=== PATIENT | female | born 1955 | race Caucasian/White ===

== ENCOUNTER → 2021-09-25 09:17 | Outpatient (BNVA) | payer MEDICARE, SELFPAY | PROVIDERS: PCP Nurse Practitioner Family; Visit Provider Nurse Practitioner Family | DX: E78.5 Hyperlipidemia, unspecified (principal); E03.9 Hypothyroidism, unspecified; E11.9 Type 2 diabetes mellitus without complications; I49.9 Cardiac arrhythmia, unspecified; Z12.83 Encounter for screening for malignant neoplasm of skin; I42.2 Other hypertrophic cardiomyopathy | CPT/HCPCS: 80053; 80061; 82043; 83036; 84443 ==

== ENCOUNTER → 2021-12-03 14:19 | Outpatient (BNVA) | payer MEDICARE, SELFPAY | PROVIDERS: PCP Nurse Practitioner Family; Visit Provider Internal Medicine | DX: I42.2 Other hypertrophic cardiomyopathy (principal); R00.2 Palpitations | CPT/HCPCS: 93225; 99203; 99204 ==

== ENCOUNTER → 2021-12-03 15:30 | Outpatient (BNVA) | payer MEDICARE, SELFPAY | PROVIDERS: PCP Nurse Practitioner Family; Visit Provider Internal Medicine | DX: Z53.9 Procedure and treatment not carried out, unspecified reason (principal) ==

== ENCOUNTER 2022-02-05 08:13 | Outpatient (CLI) | payer MEDICARE, SELFPAY ==
--- NOTE | 2022-02-05 08:30 | USCV_ITS ---
Yi Melissa Age: 66 Gender: F : 1955 Exam Date: 02/05/2022 08:34 Ordering Phys: Rohith Roth M.D ([email or web address]) Technologist: [place] [facility] [place] HISTORY: Diameter (cm) AP x Transverse x Length Velocity (cm/s) Waveform Prox Aorta: 1.92 x 1.89 x 62.10 Triphasic Mid Aorta: 1.56 x 2.17 x 68.00 Triphasic Distal Aorta: 1.56 x 1.89 x 96.70 Triphasic Right Iliac Prox: 1.56 x 2.10 x 202.00 Triphasic Left Iliac Prox: 1.40 x 1.45 x 134.00 Triphasic Stent Prox Landing x x Aneurysmal Sac Max x x Lt Lat Sac Dim Rt Lat Sac Dim Stent Dist Landing x x Right Iliac Stent x x Left Iliac Stent x x Right Renal Art Left Renal Art FINDINGS: Comparison: none available. A complete assessment of the abdominal aorta was not possible. Ectatic abdominal aorta with evidence of atherosclerotic plaque noted. No evidence of abdominal aortic aneurysm. There is evidence of atherosclerotic plaque no significan stenosis in the right common iliac artery. There is evidence of atherosclerotic plaque no significan stenosis in the left common iliac artery. CONCLUSIONS No evidence of abdominal aortic aneurysm. Dr. Rocio Green DO (Electronically Signed) Final Date: 05 February 2022 11:14 S
--- NOTE | 2022-02-05 09:15 | USCV_ITS ---
Melissa Richmond Age: 66 Gender: F : 1955 Exam Date: 02/05/2022 08:54 Ordering Phys: Rohith Roth M.D ([email or web address]) Technologist: Exam Location: [facility] – [place] Indication: left vent hypertrophy BP: / HR: 66 Rhythm: Sinus Technical Quality: Adequate MEASUREMENTS (Male / Female) Normal Values 2D ECHO LV Diastolic Diameter PLAX 2.9 cm 4.2 - 5.9 / 3.9 - 5.3 cm LV Systolic Diameter PLAX 2.4 cm IVS Diastolic Thickness 2.7 cm 0.6 - 1.0 / 0.6 - 0.9 cm IVS Systolic Thickness 3.0 cm LVPW Diastolic Thickness 1.8 cm 0.6 - 1.0 / 0.6 - 0.9 cm LVPW Systolic Thickness 1.8 cm LVOT Diameter 2.0 cm LV Ejection Fraction 2D Teich 13.8 % LV Ejection Fraction MOD 2C 75.0 % LV Ejection Fraction 2C AL 77.3 % LA Diameter 3.6 cm M-MODE Aortic Annulus Diameter 4.0 cm LA Ao Ratio MM 0.9 MV E Point Septal Separation 0.8 cm DOPPLER AV Peak Velocity 132.0 cm/s LVOT Peak Velocity 109.0 cm/s AV Area Cont Eq vti 2.9 cm squared AV Area Cont Eq pk 2.6 cm squared MV Area PHT 5.0 cm squared Mitral E to A Ratio 0.4 MV E' Velocity 23.2 cm/s Mitral E to MV E' Ratio 6.5 Mitral E to LV E' Lateral Ratio 6.7 Mitral E to LV E' Septal Ratio 6.2 TR Peak Velocity 149.0 cm/s TR Peak Gradient 8.9 mmHg TV Peak E Velocity 74.0 cm/s Right Atrial Pressure 3.0 mmHg Pulmonary Artery Systolic Pressu 11.9 mmHg PV Peak Velocity 119.0 cm/s RV Acceleration Time 0.2 s FINDINGS Left Ventricle Left ventricle is normal in size. LV systolic function is normal with EF of 60-65%. No regional wall motion abnormalities are seen. Moderate concentric left ventricle hypertrophy with severe basal septal hypertrophy. No systolic anterior motion of mitral valve. Grade 1 diastolic dysfunction Right Ventricle Normal in size and function Right Atrium Normal in size Left Atrium Normal in size Mitral Valve Structurally normal mitral valve. Mild mitral regurgitation Aortic Valve Structurally normal aortic valve. No significant stenosis. Mild aortic regurgitation. No significant gradient across LVOT Tricuspid Valve Grossly normal. No significant stenosis or regurgitation. Pulmonic Valve Not well visualized Pericardium Normal Aorta Normal in size IVC CONCLUSIONS LV systolic function is normal with EF of 60-65%. Moderate concentric left ventricular hypertrophy with severe basal septal hypertrophy. No systolic anterior motion of mitral valve. Grade 1 diastolic dysfunction Mild mitral regurgitation Mild aortic regurgitation No comparison studies are available Rohith Roth MD (Electronically Signed) Final Date: 10 February 2022 12:23 S
== END 2022-02-05 08:14 | disposition home or self-care (01) ==
PROVIDERS: PCP Nurse Practitioner Family; Visit Provider Internal Medicine
DX: Z13.6 Encounter for screening for cardiovascular disorders (principal); I42.2 Other hypertrophic cardiomyopathy; I71.40 Abdominal aortic aneurysm, without rupture, unspecified; I08.0 Rheumatic disorders of both mitral and aortic valves
CPT/HCPCS: 93306; 93978

== ENCOUNTER → 2022-02-18 09:17 | Outpatient (BNVA) | payer MEDICARE, SELFPAY | PROVIDERS: PCP Nurse Practitioner Family; Visit Provider Nurse Practitioner Family | DX: E11.9 Type 2 diabetes mellitus without complications (principal); E55.9 Vitamin D deficiency, unspecified; E03.9 Hypothyroidism, unspecified; E78.5 Hyperlipidemia, unspecified | CPT/HCPCS: 80053; 80061; 82306; 83036; 84443 ==

== ENCOUNTER → 2022-04-10 08:50 | Outpatient (BNVA) | payer MEDICARE, SELFPAY | PROVIDERS: PCP Nurse Practitioner Family; Visit Provider Nurse Practitioner Family | DX: J02.9 Acute pharyngitis, unspecified (principal) | CPT/HCPCS: 87880 ==

== ENCOUNTER → 2022-04-16 13:01 | Outpatient (BNVA) | payer MEDICARE, SELFPAY | PROVIDERS: PCP Nurse Practitioner Family; Visit Provider Internal Medicine | DX: I42.2 Other hypertrophic cardiomyopathy (principal) | CPT/HCPCS: 99214 ==

== ENCOUNTER → 2022-06-27 07:53 | Outpatient (BNVA) | payer MEDICARE, SELFPAY | PROVIDERS: PCP Nurse Practitioner Family; Visit Provider Internal Medicine | DX: E11.9 Type 2 diabetes mellitus without complications (principal); E03.9 Hypothyroidism, unspecified; E78.5 Hyperlipidemia, unspecified; L68.0 Hirsutism; Z79.84 Long term (current) use of oral hypoglycemic drugs; Z79.890 Hormone replacement therapy | CPT/HCPCS: 99204 ==

== ENCOUNTER → 2022-07-03 08:17 | Outpatient (BNVA) | payer MEDICARE, SELFPAY | PROVIDERS: PCP Nurse Practitioner Family; Visit Provider Internal Medicine | DX: E03.9 Hypothyroidism, unspecified (principal); E11.9 Type 2 diabetes mellitus without complications | CPT/HCPCS: 80053; 80061; 82043; 82607; 82627; 83036; 84403; 84439; 84443; 84480 ==

== ENCOUNTER → 2022-09-19 08:15 | Outpatient (BNVA) | payer MEDICARE, SELFPAY | PROVIDERS: PCP Nurse Practitioner Family; Visit Provider Internal Medicine | DX: E03.9 Hypothyroidism, unspecified (principal); E11.9 Type 2 diabetes mellitus without complications | CPT/HCPCS: 80053; 80061; 82043; 83036; 84439; 84443; 84480 ==

== ENCOUNTER → 2022-09-25 08:24 | Outpatient (BNVA) | payer MEDICARE, SELFPAY | PROVIDERS: PCP Nurse Practitioner Family; Visit Provider Internal Medicine | DX: E11.9 Type 2 diabetes mellitus without complications (principal); E78.5 Hyperlipidemia, unspecified; E03.9 Hypothyroidism, unspecified; L68.0 Hirsutism; Z79.890 Hormone replacement therapy; Z79.84 Long term (current) use of oral hypoglycemic drugs | CPT/HCPCS: 99214 ==

== ENCOUNTER 2022-11-21 09:15 | Outpatient (CLI) | payer MEDICARE, SELFPAY ==
--- NOTE | 2022-11-21 09:30 | USCV_ITS ---
Melissa Richmond Age: 66 Gender: F : 1955 Exam Date: 11/21/2022 09:47 Ordering Phys: Rohith Roth M.D ([email or web address]) Technologist: Bruno Young Exam Location: [facility] [place] Indication: Shortness of breath BP: 110 / 76 HR: 69 Rhythm: Sinus Technical Quality: Adequate MEASUREMENTS (Male / Female) Normal Values 2D ECHO LVOT Diameter 2.0 cm LV Ejection Fraction MOD 2C 76.0 % LV Ejection Fraction 2C AL 78.1 % LA Diameter 3.4 cm LA Width 3.7 cm LA Height 4.1 cm RA Width 3.4 cm RA Height 3.5 cm Aorta at Sinotubular Diameter 2.1 cm IVC Diameter 1.5 cm M-MODE Aortic Annulus Diameter 2.1 cm LA Ao Ratio MM 1.8 MV E Point Septal Separation 0.6 cm DOPPLER AV Peak Velocity 117.3 cm/s LVOT Peak Velocity 109.0 cm/s AV Area Cont Eq vti 3.5 cm squared AV Area Cont Eq pk 2.9 cm squared MV Peak Velocity 101.0 cm/s MV Area PHT 4.6 cm squared Mitral E to A Ratio 0.7 MV E' Velocity 32.5 cm/s Mitral E to MV E' Ratio 9.5 Mitral E to LV E' Lateral Ratio 11.1 Mitral E to LV E' Septal Ratio 8.4 TR Peak Velocity 158.4 cm/s TR Peak Gradient 10.0 mmHg TR Mean Velocity 126.4 cm/s TR Mean Gradient 6.6 mmHg TR Velocity Time Integral 33.7 cm PV Peak Velocity 95.0 cm/s RV Acceleration Time 0.1 s RV Ejection Time 0.3 s RV AcT/ET 0.4 FINDINGS Left Ventricle Left ventricle is normal in size. LV systolic function is normal with EF of 60 to 65%. No regional wall motion abnormalities are seen. Severe basal septal hypertrophy seen. Grade 1 diastolic dysfunction. Right Ventricle Normal in size and function Right Atrium Normal in size Left Atrium Normal in size Mitral Valve Structurally normal mitral valve. Mild mitral regurgitation Aortic Valve Aortic valve is thickened. Mild aortic regurgitation. No significant stenosis seen. Tricuspid Valve Mild tricuspid regurgitation. Insufficient TR jet to calculate RVSP Pulmonic Valve Not well visualized Pericardium Normal Aorta Normal in size IVC Appears to be normal CONCLUSIONS LV systolic function is normal with EF of 60 to 65%. Severe basal septal hypertrophy seen. Grade 1 diastolic dysfunction. Mild mitral regurgitation Mild aortic regurgitation Mild tricuspid regurgitation Compared to prior echocardiogram from 2021, no significant changes are seen. Rohith Roth MD (Electronically Signed) Final Date: 05 December 2022 11:39 S
== END 2022-11-21 09:16 | disposition home or self-care (01) ==
PROVIDERS: PCP Nurse Practitioner Family; Visit Provider Internal Medicine
DX: R06.02 Shortness of breath (principal); I34.0 Nonrheumatic mitral (valve) insufficiency; I35.1 Nonrheumatic aortic (valve) insufficiency; I07.1 Rheumatic tricuspid insufficiency
CPT/HCPCS: 93306

== ENCOUNTER → 2022-12-26 08:00 | Outpatient (BNVA) | payer MEDICARE, SELFPAY | PROVIDERS: PCP Nurse Practitioner Family; Visit Provider Internal Medicine | DX: E03.9 Hypothyroidism, unspecified (principal); E11.9 Type 2 diabetes mellitus without complications; E78.5 Hyperlipidemia, unspecified | CPT/HCPCS: 80053; 80061; 82043; 82533; 83036 ==

== ENCOUNTER → 2022-12-27 08:40 | Outpatient (BNVA) | payer MEDICARE, SELFPAY | PROVIDERS: PCP Nurse Practitioner Family; Visit Provider Internal Medicine | DX: E11.9 Type 2 diabetes mellitus without complications (principal); E78.5 Hyperlipidemia, unspecified; E03.9 Hypothyroidism, unspecified; L68.0 Hirsutism; Z79.84 Long term (current) use of oral hypoglycemic drugs; Z79.890 Hormone replacement therapy | CPT/HCPCS: 99214 ==

== ENCOUNTER → 2023-01-10 09:58 | Outpatient (BNVA) | payer MEDICARE, SELFPAY | PROVIDERS: PCP Nurse Practitioner Family; Visit Provider Internal Medicine | DX: I42.2 Other hypertrophic cardiomyopathy (principal) | CPT/HCPCS: 99214 ==

== ENCOUNTER → 2023-03-06 10:45 | Outpatient (BNVA) | payer MEDICARE, SELFPAY | PROVIDERS: PCP Nurse Practitioner Family; Visit Provider Nurse Practitioner Family | DX: L02.821 Furuncle of head [any part, except face] (principal); L21.8 Other seborrheic dermatitis; S20.461A Insect bite (nonvenomous) of right back wall of thorax, initial encounter; S20.462A Insect bite (nonvenomous) of left back wall of thorax, initial encounter; L57.0 Actinic keratosis; L82.1 Other seborrheic keratosis; L57.8 Other skin changes due to chronic exposure to nonionizing radiation; L81.4 Other melanin hyperpigmentation; D22.5 Melanocytic nevi of trunk; L72.0 Epidermal cyst; X58.XXXA Exposure to other specified factors, initial encounter | CPT/HCPCS: 17000; 99214 ==

== ENCOUNTER → 2023-03-24 08:30 | Outpatient (BNVA) | payer MEDICARE, SELFPAY | PROVIDERS: PCP Nurse Practitioner Family; Visit Provider Internal Medicine | DX: E03.9 Hypothyroidism, unspecified (principal); E11.9 Type 2 diabetes mellitus without complications; E78.5 Hyperlipidemia, unspecified; L68.0 Hirsutism | CPT/HCPCS: 80053; 80061; 82043; 83036; 84439; 84443 ==

== ENCOUNTER → 2023-05-07 10:10 | Outpatient (BNVA) | payer MEDICARE, SELFPAY | PROVIDERS: PCP Nurse Practitioner Family; Visit Provider Internal Medicine | DX: E03.9 Hypothyroidism, unspecified (principal) | CPT/HCPCS: 84443 ==

== ENCOUNTER → 2023-06-24 09:04 | Outpatient (BNVA) | payer MEDICARE, SELFPAY | PROVIDERS: PCP Nurse Practitioner Family; Visit Provider Internal Medicine | DX: E11.9 Type 2 diabetes mellitus without complications (principal); E78.5 Hyperlipidemia, unspecified; E03.9 Hypothyroidism, unspecified | CPT/HCPCS: 80053; 80061; 82043; 83036; 84439; 84443 ==

== ENCOUNTER → 2023-06-27 09:41 | Outpatient (BNVA) | payer MEDICARE, SELFPAY | PROVIDERS: PCP Nurse Practitioner Family; Visit Provider Internal Medicine | DX: E11.9 Type 2 diabetes mellitus without complications (principal); E78.5 Hyperlipidemia, unspecified; E03.9 Hypothyroidism, unspecified; L68.0 Hirsutism; Z79.890 Hormone replacement therapy; Z79.4 Long term (current) use of insulin | CPT/HCPCS: 99214 ==

== ENCOUNTER → 2023-09-24 07:57 | Outpatient (BNVA) | payer MEDICARE, SELFPAY | PROVIDERS: PCP Nurse Practitioner Family; Visit Provider Internal Medicine | DX: E11.9 Type 2 diabetes mellitus without complications (principal); E78.5 Hyperlipidemia, unspecified; E03.9 Hypothyroidism, unspecified | CPT/HCPCS: 80053; 80061; 82043; 83036; 84439; 84443 ==

== ENCOUNTER → 2023-09-25 08:28 | Outpatient (BNVA) | payer MEDICARE, SELFPAY | PROVIDERS: PCP Nurse Practitioner Family; Visit Provider Internal Medicine | DX: E11.9 Type 2 diabetes mellitus without complications (principal); E78.5 Hyperlipidemia, unspecified; E03.9 Hypothyroidism, unspecified; L68.0 Hirsutism; Z79.890 Hormone replacement therapy | CPT/HCPCS: 99214 ==

== ENCOUNTER 2024-01-06 12:06 | Outpatient (CLI) | payer MEDICARE, SELFPAY ==
--- NOTE | 2024-01-06 12:15 | USCV_ITS ---
Melissa Richmond Age: 68 Gender: F : 1955 Exam Date: 01/06/2024 12:16 Ordering Phys: Rohith Roth M.D ([email or web address]) Technologist: [place] [facility] [place]: sob BP: 130 / 78 HR: 66 Rhythm: Sinus Technical Quality: Adequate MEASUREMENTS (Male / Female) Normal Values 2D ECHO LVOT Diameter 2.0 cm LV Ejection Fraction MOD 4C 66.2 % LV Ejection Fraction MOD 2C 53.4 % LV Ejection Fraction 2C AL 58.0 % LA Diameter 3.1 cm RA Systolic Volume 4C AL 33.3 ml RA Systolic Volume 4C MOD 33.3 ml LA Sys Volume AL 42.9 cm cubed LA Sys Volume Index AL 20.8 cm cubed/m squared Aorta at Sinotubular Diameter 2.4 cm IVC Diameter 1.8 cm M-MODE LA Ao Ratio MM 1.2 AV Cusp Separation MM 2.0 cm DOPPLER AV Peak Velocity 121.0 cm/s LVOT Peak Velocity 111.0 cm/s AV Area Cont Eq vti 3.8 cm squared AV Area Cont Eq pk 3.0 cm squared MV Peak Velocity 95.0 cm/s MV Area PHT 2.3 cm squared Mitral E to A Ratio 0.6 TR Peak Velocity 130.0 cm/s TR Peak Gradient 6.8 mmHg TV Peak E Velocity 59.0 cm/s Right Atrial Pressure 3.0 mmHg Pulmonary Artery Systolic Pressu 9.8 mmHg PV Peak Velocity 117.0 cm/s FINDINGS Left Ventricle Left ventricle is normal in size. LV systolic function is normal with EF of 55 to 60%. No regional wall motion abnormalities are seen. Severe asymmetric septal hypertrophy. Diastolic Septal thickness is 1.8cm. Grade 1 diastolic dysfunction. Right Ventricle Normal in size and function Right Atrium Normal in size Left Atrium Normal in size Mitral Valve Structurally normal mitral valve. Mild mitral regurgitation. Aortic Valve Aortic valve is thickened. No significant stenosis. Trace aortic regurgitation. Tricuspid Valve Mild tricuspid regurgitation Pulmonic Valve Not well visualized Pericardium Normal Aorta Normal in size IVC Appears to be normal CONCLUSIONS LV systolic function is normal with EF of 55-60% Moderate to severe asymmetric septal hypertrophy Grade 1 diastolic dysfunction Mild mitral regurgitation Trace aortic regurgitation Mild tricuspid regurgitation Compared to prior echocardiogram from 2022, no significant changes are seen. Rohith Roth MD (Electronically Signed) Final Date: 07 January 2024 09:53 S
== END 2024-01-06 12:07 | disposition home or self-care (01) ==
LOC: RAD 12:07
PROVIDERS: PCP Nurse Practitioner Family; Visit Provider Internal Medicine
DX: I50.30 Unspecified diastolic (congestive) heart failure (principal); I42.2 Other hypertrophic cardiomyopathy; I35.0 Nonrheumatic aortic (valve) stenosis; R07.9 Chest pain, unspecified; R06.02 Shortness of breath
CPT/HCPCS: 93306

== ENCOUNTER → 2024-03-22 08:02 | Outpatient (BNVA) | payer MEDICARE, SELFPAY | PROVIDERS: PCP Nurse Practitioner Family; Visit Provider Internal Medicine | DX: E11.9 Type 2 diabetes mellitus without complications (principal); E78.5 Hyperlipidemia, unspecified; E03.9 Hypothyroidism, unspecified | CPT/HCPCS: 80053; 80061; 82043; 83036; 84439; 84443 ==

== ENCOUNTER → 2024-03-29 14:05 | Outpatient (BNVA) | payer MEDICARE, SELFPAY | PROVIDERS: PCP Nurse Practitioner Family; Visit Provider Internal Medicine | DX: I42.2 Other hypertrophic cardiomyopathy (principal) | CPT/HCPCS: 99213 ==

== ENCOUNTER → 2024-04-19 12:50 | Outpatient (BNVA) | payer MEDICARE, SELFPAY | PROVIDERS: PCP Nurse Practitioner Family; Visit Provider Nurse Practitioner Family | DX: L21.8 Other seborrheic dermatitis (principal); L71.8 Other rosacea; L82.1 Other seborrheic keratosis; L57.8 Other skin changes due to chronic exposure to nonionizing radiation; L81.4 Other melanin hyperpigmentation; D22.5 Melanocytic nevi of trunk; L72.0 Epidermal cyst; L82.0 Inflamed seborrheic keratosis; H53.459 Other localized visual field defect, unspecified eye; L29.89 Other pruritus; L57.0 Actinic keratosis | CPT/HCPCS: 17000; 17110; 99214 ==

== ENCOUNTER → 2024-09-20 08:48 | Outpatient (BNVA) | payer MEDICARE, SELFPAY | PROVIDERS: PCP Nurse Practitioner Family; Visit Provider Nurse Practitioner Family | DX: Z00.00 Encounter for general adult medical examination without abnormal findings (principal); E11.9 Type 2 diabetes mellitus without complications; J02.9 Acute pharyngitis, unspecified; I10 Essential (primary) hypertension | CPT/HCPCS: 80053; 80061; 82043; 83036 ==

== ENCOUNTER → 2024-10-05 12:36 | Outpatient (BNVA) | payer MEDICARE, SELFPAY | PROVIDERS: PCP Nurse Practitioner Family; Visit Provider Surgery | DX: Z12.11 Encounter for screening for malignant neoplasm of colon (principal) | CPT/HCPCS: 99024; 99204 ==

== ENCOUNTER 2024-10-13 13:10 | Outpatient (CLI) | payer MEDICARE, SELFPAY ==
--- NOTE | 2024-10-13 13:30 | XR_ITS ---
WS: [id number] SCREENING DEXA SCAN [employer] CLINICAL INFORMATION: M81.0 - Age-related osteoporosis without current patholog... COMPARISON: None. FINDINGS: The L1-L4 bone mineral density measures 1.551 g/cm2. This corresponds to a T score score of 3.1 and Z score of 3.8. Left femoral neck bone mineral density measures 1.306 g/cm2. This corresponds to a T score of 2.4 and Z score of 3.2. Right femoral neck bone mineral density measures 1.247 g/cm2. This corresponds to a T score 1.9of and Z score of 2.7. Mean femoral neck bone mineral density measures 1.276 g/cm2. This corresponds to a T score of 2.1 and Z score of 2.9. XR/XR DEXA axial skeleton* 58950 IMPRESSION: Normal bone mineralization. Patient's FRAX calculated 10 year probability for major osteoporotic fracture i s 6.2% and osteoporotic hip fracture is 0.3%.
--- NOTE | 2024-10-13 14:00 | MM_ITS ---
WS: [id number] Bilateral screening 3D tomosynthesis digital mammogram, 10/13/2024 1:11 PM Clinical Data: Z12.39 - Encounter for other screening for malignant neop... Comparison: None. Findings: No spiculated masses or clustered calcifications are seen. There are no secondary signs of carcinoma. MM/MM scr BI tomosynthesis [id number] Impression: Negative bilateral mammogram unchanged. Recommend annual screening mammograms. BIRADS: 1 - Negative. FOLLOW UP: 1 Year Follow-up DENSITY: There are scattered areas of fibroglandular density. The CAD [employer] ticket checker was used
== END 2024-10-13 13:11 | disposition home or self-care (01) ==
LOC: RAD 13:10
PROVIDERS: PCP Nurse Practitioner Family; Visit Provider Nurse Practitioner Family
DX: Z12.31 Encounter for screening mammogram for malignant neoplasm of breast (principal); M81.0 Age-related osteoporosis without current pathological fracture; R92.323 Mammographic fibroglandular density, bilateral breasts
CPT/HCPCS: 77063; 77067; 77080

== ENCOUNTER 2024-11-18 06:30 | Day surgery (SDC) | payer MEDICARE, SELFPAY ==
[2024-11-18 06:41] VITALS: BMI 32.5
--- NOTE | 2024-11-18 06:47 | W.PM.OPSFHP ---
Same Day Surgery H&P Indication for Procedure/HPI DATE OF PROCEDURE: November 18, 2024 CHIEF COMPLAINT/INDICATIONFOR SURGICAL PROCEDURE: need for screening colonoscopy PREOP DIAGNOSIS: need for screening colonoscopy PLANNED PROCEDURE: Operation Date: 11/18/24 07:40 Proposed Procedures p Colonoscopy 40988 G0105, Z12.11(Not Applicable) - Pop Patterson MD Medications/Allergies* Home Medications ?Medication ?Instructions ?Recorded ?Confirmed ?Type coenzyme Q10 100 mg tablet 100 mg PO DAILY 12/03/21 11/15/24 History Allergies/Adverse Reactions Allergy/AdvReac Type Severity Reaction Status Date / Time amoxicillin Allergy Unknown Unknown Verified 11/18/24 06:38 atenolol Allergy Unknown Unknown Verified 11/18/24 06:38 azithromycin Allergy Unknown Unknown Verified 11/18/24 06:38 levofloxacin (From Levaquin) Allergy Unknown Unknown Verified 11/18/24 06:38 sulfamethoxazole Allergy Unknown Unknown Verified 11/18/24 06:38 Pertinent History/Comorbid Conditions* Medical History (Updated 09/22/24 @ 10:13 by JOSUE Swenson) Hyperlipidemia Type 2 diabetes mellitus Hypothyroidism Surgical History (Updated 07/05/24 @ 14:46 by JOSUE Swenson) History of cataract surgery bilat Family History (Updated 12/03/21 @ 14:45 by Misa Langford RN) Aortic aneurysm Father Hypertension Father Mother Social History Smoking and tobacco/nicotine status: never used tobacco/nicotine Second hand smoke exposure: No Pertinent Exam Findings alert, oriented x 3, clear to auscultation bilaterally and regular rate & rhythm Recommendations Surgery/Procedure today Coding Level of Care Code Acute Code for Chg Fwd
--- NOTE | 2024-11-18 07:04 | ANES.PREANE2 ---
Pre-Anesthetic Assessment Height/Weight: Height 5 ft 6 in Weight 202 lb Preop Diagnosis: need for screening colonoscopy Operation Date: 11/18/24 07:40 Proposed Procedures p Colonoscopy 45996 G0105, Z12.11(Not Applicable) - Pop Patterson MD Was Beta Ameya taken within 24 hours: N/A Was Clonidine taken within 24 hours: N/A Last intake: Intake Last Liquid Date 11/17/24 Last Liquid Time 22:00 Last Solid Date 11/16/24 Last Solid Time 18:00 Social No alcohol and No tobacco Exam alert, oriented x 3, clear to auscultation bilaterally and regular rate & rhythm Airway Submandibular: within normal limits Cervical ROM: within normal limits Mallampati: Class III Dentition: full Anesthetic Plan ASA status: 3 Anesthesia: MAC Other: No prior issues with anesthesia Completed bowel prep History of hypothyroidism on Synthroid Type 2 diabetes, on Trulicity. Last taken 11/06/2024. Preop BS 176 Labs reviewed from September, acceptable for procedure today. Hyperlipidemia noted Echo 2023 showing EF of 55 to 60% with severe septal hypertrophy Patient states that she was able to get around just fine, METs greater than 4 Plan for MAC anesthesia Medications/Allergies Home Medications ?Medication ?Instructions ?Recorded ?Confirmed ?Last Taken ?Type coenzyme Q10 100 mg tablet 100 mg PO DAILY 12/03/21 11/15/24 11/14/24 History blood sugar diagnostic (OneTouch #300 strips 03/18/24 10/05/24 Unknown Rx Verio test strips) simvastatin 20 mg tablet 20 mg PO DAILY 90 days #90 tabs 06/09/24 11/15/24 11/14/24 Rx dulaglutide 1.5 mg/0.5 mL 1.5 mg (0.5 mL) SUBCUT Q7D 90 days 09/30/24 11/15/24 11/06/24 Rx subcutaneous pen injector #6 mL (Trulicity) levothyroxine 125 mcg tablet 125 mcg PO DAILY #90 tabs 10/01/24 11/15/24 11/15/24 Rx (Synthroid) Allergies Allergy/AdvReac Type Severity Reaction Status Date / Time amoxicillin Allergy Unknown Unknown Verified 11/18/24 06:38 atenolol Allergy Unknown Unknown Verified 11/18/24 06:38 azithromycin Allergy Unknown Unknown Verified 11/18/24 06:38 levofloxacin (From Levaquin) Allergy Unknown Unknown Verified 11/18/24 06:38 sulfamethoxazole Allergy Unknown Unknown Verified 11/18/24 06:38 Current Medications Generic Name Dose Route Start Last Admin Trade Name Freq PRN Reason Stop Dose Admin Sodium Chloride 1,000 mls @ 15 mls/hr 11/18/24 06:32 11/18/24 06:45 Sodium Chloride 0.9% IV 11/19/24 06:31 15 mls/hr .Q24H PRN Administration COLONOSCOPY FLUIDS PFSH Anesthesia Medical History Hyperlipidemia Type 2 diabetes mellitus Hypothyroidism Surgical History History of cataract surgery bilat Family History Father Hypertension Aortic aneurysm Mother Hypertension Social History Smoking and tobacco/nicotine status: never used tobacco/nicotine Second hand smoke exposure: No Data Anesthesia Cardiac Studies: Echocardiogram 01/06/24 Holter Monitor 12/03/21
--- NOTE | 2024-11-18 07:56 | PC.NURSE ---
Cecum time [id number]
[2024-11-18 08:11] VITALS: BP 123/68; PULSE 73; RESP 12; TEMP 36.6; O2SAT 95
[2024-11-18 08:52] VITALS: BP 116/63; PULSE 71; RESP 16; O2SAT 95
--- NOTE | 2024-11-18 08:53 | ANE.PACU2 ---
Inpatient post-anesthesia follow up: Airway intact: Yes Vital signs: Temperature 97.9 F Pulse Rate 71 Respiratory Rate 16 Blood Pressure 116/63 Pulse Oximetry 95 Oxygen Delivery Me thod Room Air Oxygen Flow Rate Fraction of Inspir ed Oxygen Hydration adequate: Yes Nausea and vomiting: No Pain level: 1 Mental status: Baseline
== END 2024-11-18 08:53 | disposition home or self-care (01) ==
PROVIDERS: PCP Nurse Practitioner Family; Visit Provider Surgery
PROC: 0DJD8ZZ Inspection of Lower Intestinal Tract, Via Natural or Artificial Opening Endoscopic (ICD-10-PCS; CPT 45378; principal; 2024-11-18 07:40)
DX: Z12.11 Encounter for screening for malignant neoplasm of colon (principal); D12.3 Benign neoplasm of transverse colon; K57.30 Diverticulosis of large intestine without perforation or abscess without bleeding; E78.5 Hyperlipidemia, unspecified; E11.9 Type 2 diabetes mellitus without complications; E03.9 Hypothyroidism, unspecified; Z79.899 Other long term (current) drug therapy; Z79.890 Hormone replacement therapy
CPT/HCPCS: 36416; 45380; 82962; 88305; J2250; J2704; J3490; J7030

== ENCOUNTER → 2025-03-10 08:53 | Outpatient (BNVA) | payer MEDICARE, SELFPAY | PROVIDERS: PCP Nurse Practitioner Family; Visit Provider Nurse Practitioner Family | DX: I10 Essential (primary) hypertension (principal); M25.50 Pain in unspecified joint; E11.9 Type 2 diabetes mellitus without complications | CPT/HCPCS: 80053; 80061; 83036; 84443; 86038; 86431 ==